=== PATIENT | male | born 2005 | race Caucasian/White ===

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

== ENCOUNTER 2024-02-12 17:11 | Outpatient (OUT) | payer BC, SELFPAY ==
--- NOTE | 2024-02-12 17:16 | US_ITS ---
The [place] [id number] Patient Name: LEISA LIMON MRN: [id number] date: 2005 Sex: M Assigned Patient Location: Current Patient Location: Accession/Order Number: [id number] Exam Date: 02/12/2024 18:04 Report Date: 02/15/2024 08:08 At the request of: STAR MCKEON Procedure: US scrotum Ultrasound scrotum/testicle HISTORY: Tenderness TECHNIQUE: Dedicated ultrasound of the scrotum and testes performed. FINDINGS: Comparison: None. Both testicles demonstrate normal echotexture and echogenicity. Right testicle measures 3.5 x 2.2 x 1.9 cm. The left testicle measures 3.2 x 1.9 x 2.8 cm. There is symmetrical color flow and Dopplerable arterial and venous waveforms in both testicles. Resistive index on the right is 0.61, and on the left is 0.58. There is no testicular mass. Right epididymal head measures 1.0 cm, with a 0.8 cm cyst. The left epididymal head measures 0.7 cm. Both epididymides with normal color flow. There is no hydrocele on either side. There is no varicocele. US/US scrotum IMPRESSION: 1. Normal testicles bilaterally, without testicular torsion, orchitis/epididymitis, or testicular mass. 2. Incidental 0.8 cm right epididymal head cyst/spermatocele. 3. Negative for hydrocele or varicocele. Electronically authenticated by: AFIA CONLEY Date: 02/15/2024 08:08
== END 2024-02-12 17:12 | disposition home or self-care (01) ==
PROVIDERS: PCP Family Medicine; Visit Provider Nurse Practitioner Family
DX: N50.82 Scrotal pain (principal)
CPT/HCPCS: 76870